=== PATIENT | male | born 1945 | race Caucasian/White ===

== ENCOUNTER → 2020-02-09 | Outpatient (CLI) | payer MEDICARE, OTHER ==
[~2020-02-09] MED LIST: LIDOCAINE 1%, 10ML ONE
== END | disposition home or self-care (01) ==
LOC: RAD 15:38
PROVIDERS: ATTEND Specialist
DX: C48.0 Malignant neoplasm of retroperitoneum (principal)
CPT/HCPCS: 49083; 82042; 84157; 87070; 87075; 87205; 89051

== ENCOUNTER → 2020-02-23 | Outpatient (CLI) | payer MEDICARE, OTHER | END | disposition home or self-care (01) | LOC: RAD 11:26 | PROVIDERS: ATTEND Specialist | DX: R18.8 Other ascites (principal); C48.1 Malignant neoplasm of specified parts of peritoneum | CPT/HCPCS: 49083 ==

== ENCOUNTER → 2020-03-01 | Outpatient (CLI) | payer MEDICARE, OTHER | END | disposition home or self-care (01) | LOC: RAD 11:30 | PROVIDERS: ATTEND Specialist | DX: C48.0 Malignant neoplasm of retroperitoneum (principal) | CPT/HCPCS: 49083 ==

== ENCOUNTER → 2020-03-08 | Outpatient (CLI) | payer MEDICARE, OTHER | END | disposition home or self-care (01) | LOC: RAD 12:45 | PROVIDERS: ATTEND Specialist | DX: R18.8 Other ascites (principal); C48.0 Malignant neoplasm of retroperitoneum | CPT/HCPCS: 49083 ==

== ENCOUNTER → 2020-03-22 | Outpatient (CLI) | payer MEDICARE, OTHER | END | disposition home or self-care (01) | LOC: RAD 11:49 | PROVIDERS: ATTEND Specialist | DX: R18.0 Malignant ascites (principal); C48.0 Malignant neoplasm of retroperitoneum; K59.00 Constipation, unspecified; R14.0 Abdominal distension (gaseous) | CPT/HCPCS: 49083; 82042; 83615; 84157; 87070; 87205; 88112; 88305; 88341; 88342; 89051 ==

== ENCOUNTER → 2020-04-07 | Outpatient (CLI) | payer MEDICARE, OTHER | END | disposition home or self-care (01) | LOC: RAD 10:49 | PROVIDERS: ATTEND Specialist | DX: C48.0 Malignant neoplasm of retroperitoneum (principal) | CPT/HCPCS: 49083 ==

== ENCOUNTER 2020-04-19 11:47 | Outpatient (CLI) | payer MEDICARE, OTHER ==
[2020-04-19] MEDS ORDERED: LIDOCAINE 1%, 10ML ONE (12:01)
== END 2020-04-19 23:59 | disposition home or self-care (01) ==
LOC: RAD 11:47
PROVIDERS: ATTEND Specialist
DX: R18.8 Other ascites (principal); C48.0 Malignant neoplasm of retroperitoneum
CPT/HCPCS: 49083

== ENCOUNTER → 2020-04-25 | Outpatient (CLI) | payer MEDICARE, OTHER | END | disposition home or self-care (01) | LOC: RAD 13:18 | PROVIDERS: ATTEND Specialist | DX: R18.8 Other ascites (principal); C48.0 Malignant neoplasm of retroperitoneum | CPT/HCPCS: 49083 ==

== ENCOUNTER → 2020-05-03 | Outpatient (CLI) | payer MEDICARE, OTHER | END | disposition home or self-care (01) | LOC: RAD 12:51 | PROVIDERS: ATTEND Specialist | DX: R18.8 Other ascites (principal); C48.0 Malignant neoplasm of retroperitoneum | CPT/HCPCS: 49083 ==

== ENCOUNTER → 2020-05-09 | Outpatient (CLI) | payer MEDICARE, OTHER | END | disposition home or self-care (01) | LOC: RAD 12:51 | PROVIDERS: ATTEND Specialist | DX: R18.8 Other ascites (principal); C48.0 Malignant neoplasm of retroperitoneum | CPT/HCPCS: 49083 ==

== ENCOUNTER → 2020-05-16 | Outpatient (CLI) | payer MEDICARE, OTHER | END | disposition home or self-care (01) | LOC: RAD 12:48 | PROVIDERS: ATTEND Specialist | DX: R18.8 Other ascites (principal); C48.0 Malignant neoplasm of retroperitoneum | CPT/HCPCS: 49083; 82945; 83615; 84157; 88112; 88305; 89051 ==

== ENCOUNTER 2020-05-23 13:03 | Outpatient (CLI) | payer MEDICARE, OTHER | END 2020-05-23 23:59 | disposition home or self-care (01) | LOC: RAD 13:03 | PROVIDERS: ATTEND Specialist | DX: R18.8 Other ascites (principal); C48.0 Malignant neoplasm of retroperitoneum | CPT/HCPCS: 49083 ==

== ENCOUNTER 2020-05-30 12:35 | Outpatient (CLI) | payer MEDICARE, OTHER ==
[2020-05-30] MEDS ORDERED: LIDOCAINE 1%, 10ML ONE (12:51)
[2020-06-06] MEDS ORDERED: LIDOCAINE 1%, 10ML ONE (12:32)
== END 2020-05-30 23:59 | disposition home or self-care (01) ==
LOC: RAD 12:35
PROVIDERS: ATTEND Specialist
DX: R18.8 Other ascites (principal); C48.0 Malignant neoplasm of retroperitoneum
CPT/HCPCS: 49083

== ENCOUNTER → 2020-06-06 | Outpatient (CLI) | payer MEDICARE, OTHER | END | disposition home or self-care (01) | LOC: RAD 13:05 | PROVIDERS: ATTEND Specialist | DX: R18.8 Other ascites (principal); C48.0 Malignant neoplasm of retroperitoneum | CPT/HCPCS: 49083 ==

== ENCOUNTER → 2020-06-13 | Outpatient (CLI) | payer MEDICARE, OTHER | END | disposition home or self-care (01) | LOC: RAD 13:25 | PROVIDERS: ATTEND Specialist | DX: R18.0 Malignant ascites (principal); C48.0 Malignant neoplasm of retroperitoneum | CPT/HCPCS: 49083 ==

== ENCOUNTER → 2020-06-20 | Outpatient (CLI) | payer MEDICARE, OTHER | END | disposition home or self-care (01) | LOC: RAD 12:44 | PROVIDERS: ATTEND Specialist | DX: R18.8 Other ascites (principal); C48.0 Malignant neoplasm of retroperitoneum | CPT/HCPCS: 49083 ==

== ENCOUNTER → 2020-06-27 | Outpatient (CLI) | payer MEDICARE, OTHER | END | disposition home or self-care (01) | LOC: RAD 14:19 | PROVIDERS: ATTEND Specialist | DX: R18.8 Other ascites (principal); C48.0 Malignant neoplasm of retroperitoneum | CPT/HCPCS: 49083 ==

== ENCOUNTER → 2020-07-04 | Outpatient (CLI) | payer MEDICARE, OTHER | END | disposition home or self-care (01) | LOC: RAD 13:50 | PROVIDERS: ATTEND Specialist | DX: R18.8 Other ascites (principal); C48.0 Malignant neoplasm of retroperitoneum | CPT/HCPCS: 49083 ==

== ENCOUNTER → 2020-07-12 | Outpatient (CLI) | payer MEDICARE, OTHER | END | disposition home or self-care (01) | LOC: RAD 13:36 | PROVIDERS: ATTEND Specialist | DX: C48.0 Malignant neoplasm of retroperitoneum (principal) | CPT/HCPCS: 49083 ==

== ENCOUNTER → 2020-07-18 | Outpatient (CLI) | payer MEDICARE, OTHER | END | disposition home or self-care (01) | LOC: RAD 13:12 | PROVIDERS: ATTEND Specialist | DX: R18.8 Other ascites (principal); C48.0 Malignant neoplasm of retroperitoneum | CPT/HCPCS: 49083 ==

== ENCOUNTER → 2020-07-26 | Outpatient (CLI) | payer MEDICARE, OTHER | END | disposition home or self-care (01) | LOC: RAD 11:27 | PROVIDERS: ATTEND Specialist | DX: R18.8 Other ascites (principal); C48.0 Malignant neoplasm of retroperitoneum | CPT/HCPCS: 49083 ==

== ENCOUNTER → 2020-08-01 | Outpatient (CLI) | payer MEDICARE, OTHER | END | disposition home or self-care (01) | LOC: RAD 13:28 | PROVIDERS: ATTEND Specialist | DX: R18.8 Other ascites (principal); C48.0 Malignant neoplasm of retroperitoneum | CPT/HCPCS: 49083 ==